=== PATIENT | male | born 1990 | race Caucasian/White ===

== ENCOUNTER 2020-12-14 12:22 | Inpatient (IN) | payer OTHER ==
[~2020-12-14] VITALS: Ht 167.6 cm; Wt 81.8 kg
[2020-12-14] MEDS ORDERED: ACETAMINOPHEN 325 MG TABLET PO PRN (13:45)
[2020-12-14] MEDS ORDERED: MAGNESIUM HYDROXIDE SUSPENSION 30 ML UDCUP PO PRN (13:45)
[2020-12-14 15:06] LABS: COVID AG,FIA SOURCE NASOPHARYNGEAL
[2020-12-14 15:21] VITALS: BP 134/80
[2020-12-14] MEDS ORDERED: INFLUENZA VIRUS VACCINE QVS 2020-21 (6MO+)/PF 60 MCG/0.5 ML SYRINGE IM ONE (16:45)
[2020-12-14 19:55] VITALS: BP 127/64
[2020-12-15 04:00] VITALS: BP 123/78
[2020-12-15 08:13] VITALS: BP 122/59
[2020-12-15 20:18] VITALS: BP 120/70
[2020-12-16 05:03] VITALS: BP 109/69
[2020-12-16 08:26] VITALS: BP 113/81
[2020-12-16 20:08] VITALS: BP 123/69
[2020-12-17 04:28] VITALS: BP 113/55
[2020-12-17 08:10] VITALS: BP 126/65
== END 2020-12-17 12:20 | DRG 885 ==
LOC: EMS 12:25 → 6S 14:26
PROVIDERS: ADMIT Internal Medicine; ATTEND Internal Medicine
DX: F29 Unspecified psychosis not due to a substance or known physiological condition (principal); R45.851 Suicidal ideations; F20.0 Paranoid schizophrenia; Z20.822 Contact with and (suspected) exposure to COVID-19; Z23 Encounter for immunization
CPT/HCPCS: 87426; 99285; Z7502

== ENCOUNTER 2021-04-12 18:27 | Inpatient (IN) | payer OTHER ==
[~2021-04-12] VITALS: Ht 175.3 cm; Wt 90.4 kg
[2021-04-12] MEDS ORDERED: HALOPERIDOL 5 MG TABLET PO ONE (19:45)
[2021-04-12] MEDS ORDERED: DiphenhydrAMINE HCL 50 MG/ML VIAL IM ONE (20:00)
[2021-04-12] MEDS ORDERED: LORazepam 2 MG/ML VIAL IM ONE (20:00)
[2021-04-12] MEDS ORDERED: HALOPERIDOL LACTATE 5 MG/ML VIAL IM ONE (20:00)
[2021-04-12 20:20] LABS: COVID AG,FIA SOURCE NASOPHARYNGEAL
[2021-04-12 20:23] LABS: BASOPHILS % (AUTO) 0.5 % (0.0-2.0); EOSINOPHILS % (AUTO) 0.5 % (1.0-6.0); HEMATOCRIT 40.3 % (41-53); HEMOGLOBIN 13.7 g/dL (13.5-17.5); LYMPHOCYTES # (AUTO) 2.5 K/uL (1.0-4.8); LYMPHOCYTES % (AUTO) 28.9 % (22.0-44.0); MEAN CORPUSCULAR VOLUME 88 fL (80-100); MONOCYTES # (AUTO) 0.4 K/uL (0.1-1.0); MONOCYTES % (AUTO) 4.5 % (2.0-9.0); NEUTROPHILS # (AUTO) 5.7 K/uL (1.8-7.7); NEUTROPHILS % (AUTO) 65.6 % (40.0-70.0); PLATELET COUNT (AUTO) 220 K/uL (150-450); RED BLOOD CELL COUNT(AUTO) 4.56 MIL/uL (4.50-5.90); RED CELL DISTRIBUTION WIDTH 13.6 % (11.5-14.5)
[2021-04-12] MEDS ORDERED: ONDANSETRON HCL 4 MG/2 ML VIAL IVP PRN (20:30)
[2021-04-12] MEDS ORDERED: ACETAMINOPHEN 325 MG TABLET PO PRN ×2 (20:30→20:45)
[2021-04-12 20:37] LABS: ANION GAP 8 mmol/L (8-16); CARBON DIOXIDE 27 mmol/L (22-29); CHLORIDE 103 mmol/L (98-107); CREATININE 0.99 mg/dL (0.60-1.30); GLOMERULAR FILTR. RATE CALC > 60 mL/min (>60); GLUCOSE,RANDOM 91 mg/dL (70-110); POTASSIUM 3.7 mmol/L (3.5-5.1); SODIUM SERUM 138 mmol/L (136-145); UREA NITROGEN, BLOOD 13 mg/dL (7-18)
[2021-04-12] MEDS: DOCUSATE SODIUM 100 MG CAPSULE PO SCH (20:39)
[2021-04-12 20:44] LABS: ALANINE AMINOTRANSFERASE 23 U/L (12-78); ALBUMIN 4.1 g/dL (3.4-5.0); ALKALINE PHOSPHATASE 80 U/L (46-116); ASPARTATE AMINOTRANSFERASE 13 U/L (15-37); BILIRUBIN,TOTAL 0.5 mg/dL (0.1-1.0); TOTAL PROTEIN, SERUM 7.9 g/dL (6.4-8.2)
[2021-04-12] MEDS ORDERED: MAGNESIUM HYDROXIDE SUSPENSION 30 ML UDCUP PO PRN (20:45)
[2021-04-12] MEDS ORDERED: IPRATROPIUM BROMIDE 0.5 MG/2.5 ML NEB SOLUTION NEB PRN (20:45)
[2021-04-12] MEDS ORDERED: ALBUTEROL SULFATE 2.5 MG/0.5 ML NEB SOLUTION NEB PRN (20:45)
[2021-04-12] MEDS ORDERED: BISACODYL 10 MG RECTAL RECTAL SUPPOSITORY PR PRN (20:45)
[2021-04-12] MEDS ORDERED: ZOLPIDEM TARTRATE 5 MG TABLET PO PRN (20:45)
[2021-04-12 21:56] VITALS: BP 115/42
[2021-04-12] MEDS ORDERED: HALOPERIDOL LACTATE 5 MG/ML VIAL IM PRN (22:00)
[2021-04-12] MEDS ORDERED: LORazepam 2 MG/ML VIAL IM PRN (22:00)
[2021-04-12] MEDS ORDERED: DiphenhydrAMINE HCL 50 MG/ML VIAL IM PRN (22:00)
[2021-04-13 05:44] VITALS: BP 116/68
[2021-04-13] MEDS: DOCUSATE SODIUM 100 MG CAPSULE PO SCH ×2 (09:00→21:29)
[2021-04-13 09:07] VITALS: BP 118/64
[2021-04-13] MEDS: RisperiDONE 2 MG TABLET PO SCH ×3 (09:15→21:29)
[2021-04-13 20:40] VITALS: BP 110/63
[2021-04-14 04:30] VITALS: BP 109/63
[2021-04-14] MEDS: DOCUSATE SODIUM 100 MG CAPSULE PO SCH ×2 (08:03→20:05)
[2021-04-14] MEDS: RisperiDONE 2 MG TABLET PO SCH ×2 (08:03→20:05)
[2021-04-14 08:13] VITALS: BP 120/71
[2021-04-14 20:05] VITALS: BP 108/70
[2021-04-15 04:30] VITALS: BP 100/63
[2021-04-15 07:42] VITALS: BP 110/66
[2021-04-15] MEDS: DOCUSATE SODIUM 100 MG CAPSULE PO SCH ×2 (07:57→20:16)
[2021-04-15] MEDS: RisperiDONE 2 MG TABLET PO SCH ×2 (07:57→20:16)
[2021-04-15 20:59] VITALS: BP 109/61
[2021-04-16 06:04] VITALS: BP 113/81
[2021-04-16 08:21] VITALS: BP 115/72
[2021-04-16] MEDS: DOCUSATE SODIUM 100 MG CAPSULE PO SCH (08:37)
[2021-04-16] MEDS: RisperiDONE 2 MG TABLET PO SCH (08:37)
== END 2021-04-16 12:50 | DRG 885 ==
LOC: EMS 18:29 → 6S 20:32
PROVIDERS: ADMIT Hospitalist; ATTEND Hospitalist
DX: F20.0 Paranoid schizophrenia (principal); F41.9 Anxiety disorder, unspecified; Z79.899 Other long term (current) drug therapy; Z20.822 Contact with and (suspected) exposure to COVID-19
CPT/HCPCS: 80053; 85025; 99291; G0480; J1200; J1630; J2060

== ENCOUNTER 2021-05-13 20:44 | Inpatient (IN) | payer OTHER ==
[~2021-05-13] VITALS: Ht 167.6 cm; Wt 85.9 kg
[2021-05-13 21:43] LABS: BASOPHILS % (AUTO) 0.7 % (0.0-2.0); EOSINOPHILS % (AUTO) 0.6 % (1.0-6.0); HEMATOCRIT 44.3 % (41-53); HEMOGLOBIN 15.1 g/dL (13.5-17.5); LYMPHOCYTES # (AUTO) 2.9 K/uL (1.0-4.8); LYMPHOCYTES % (AUTO) 29.6 % (22.0-44.0); MEAN CORPUSCULAR HEMOGLOBIN 30.3 pg (26.0-34.0); MEAN CORPUSCULAR VOLUME 89 fL (80-100); MONOCYTES # (AUTO) 0.4 K/uL (0.1-1.0); MONOCYTES % (AUTO) 4.4 % (2.0-9.0); NEUTROPHILS # (AUTO) 6.4 K/uL (1.8-7.7); NEUTROPHILS % (AUTO) 64.7 % (40.0-70.0); PLATELET COUNT (AUTO) 275 K/uL (150-450); RED BLOOD CELL COUNT(AUTO) 4.99 MIL/uL (4.50-5.90); RED CELL DISTRIBUTION WIDTH 13.2 % (11.5-14.5)
[2021-05-13 21:52] LABS: ANION GAP 12 mmol/L (8-16); CALCIUM, TOTAL 9.5 mg/dL (8.8-10.5); CARBON DIOXIDE 26 mmol/L (22-29); CHLORIDE 103 mmol/L (98-107); CREATININE 1.14 mg/dL (0.60-1.30); GLOMERULAR FILTR. RATE CALC > 60 mL/min (>60); GLUCOSE,RANDOM 108 mg/dL (70-110); POTASSIUM 4.1 mmol/L (3.5-5.1); SODIUM SERUM 141 mmol/L (136-145); UREA NITROGEN, BLOOD 18 mg/dL (7-18)
[2021-05-13 22:03] LABS: ALANINE AMINOTRANSFERASE 23 U/L (12-78); ALBUMIN 4.6 g/dL (3.4-5.0); ALKALINE PHOSPHATASE 90 U/L (46-116); ASPARTATE AMINOTRANSFERASE 15 U/L (15-37); BILIRUBIN,TOTAL 0.5 mg/dL (0.1-1.0); HCG,QUANTITATIVE < 1 mIU/mL (0-6)
[2021-05-13 22:33] LABS: COVID AG,FIA SOURCE NASOPHARYNGEAL
[2021-05-14 00:05] VITALS: BP 115/69
[2021-05-14 04:29] VITALS: BP 140/71
[2021-05-14 07:48] VITALS: BP 109/75
[2021-05-14] MEDS: RisperiDONE 2 MG TABLET PO SCH ×2 (10:15→21:08)
[2021-05-14 20:30] VITALS: BP 115/66
[2021-05-14] MEDS: TraZODone HCL 50 MG TABLET PO SCH (21:08)
[2021-05-15] MEDS: RisperiDONE 2 MG TABLET PO SCH ×2 (08:07→21:26)
[2021-05-15 08:39] VITALS: BP 109/58
[2021-05-15 16:34] VITALS: BP 118/60
[2021-05-15 20:33] VITALS: BP 112/66
[2021-05-15] MEDS: TraZODone HCL 50 MG TABLET PO SCH (21:26)
[2021-05-16 05:23] VITALS: BP 123/60
[2021-05-16] MEDS: RisperiDONE 2 MG TABLET PO SCH (07:58)
[2021-05-16 08:11] VITALS: BP 105/65
[2021-05-16] MEDS ORDERED: ACET-2247 PO (10:36)
[2021-05-16] MEDS ORDERED: ALBU8HFA IH (10:36)
[2021-05-16] MEDS ORDERED: MAAL30 PO (10:37)
[2021-05-16] MEDS ORDERED: LOPE-202 PO (10:37)
[2021-05-16 11:26] VITALS: BP 110/68
[2021-05-16 15:34] VITALS: BP 109/70
[2021-05-16 19:55] VITALS: BP 119/66
[2021-05-16] MEDS: RisperiDONE 3 MG TABLET PO SCH (20:02)
[2021-05-16] MEDS: TraZODone HCL 50 MG TABLET PO SCH (20:02)
[2021-05-17 04:22] VITALS: BP 109/67
[2021-05-17 08:03] VITALS: BP 105/60
[2021-05-17] MEDS: RisperiDONE 3 MG TABLET PO SCH ×2 (08:06→20:36)
[2021-05-17 15:54] VITALS: BP 105/56
[2021-05-17 19:41] VITALS: BP 109/61
[2021-05-17] MEDS: DOCUSATE SODIUM 100 MG CAPSULE PO SCH (20:36)
[2021-05-17] MEDS: TraZODone HCL 50 MG TABLET PO SCH (20:36)
[2021-05-18 04:55] VITALS: BP 117/63
[2021-05-18 07:40] VITALS: BP 121/60
[2021-05-18] MEDS: DOCUSATE SODIUM 100 MG CAPSULE PO SCH ×2 (08:01→20:25)
[2021-05-18] MEDS: RisperiDONE 3 MG TABLET PO SCH ×2 (08:01→20:25)
[2021-05-18 20:08] VITALS: BP 116/63
[2021-05-18] MEDS: TraZODone HCL 50 MG TABLET PO SCH (20:25)
[2021-05-19 05:02] VITALS: BP 112/73
[2021-05-19 08:15] VITALS: BP 101/55
[2021-05-19] MEDS: DOCUSATE SODIUM 100 MG CAPSULE PO SCH ×2 (08:18→20:25)
[2021-05-19] MEDS: RisperiDONE 3 MG TABLET PO SCH ×2 (08:18→20:25)
[2021-05-19 20:22] VITALS: BP 119/67
[2021-05-19] MEDS: TraZODone HCL 50 MG TABLET PO SCH (20:25)
[2021-05-20 04:30] VITALS: BP 105/66
[2021-05-20] MEDS: RisperiDONE 3 MG TABLET PO SCH (07:53)
[2021-05-20] MEDS: DOCUSATE SODIUM 100 MG CAPSULE PO SCH (07:53)
[2021-05-20 07:57] VITALS: BP 107/67
[2021-05-20] MEDS ORDERED: RISP3TAB35 PO (14:34)
[2021-05-20] MEDS ORDERED: TRAZ-252 PO (14:35)
[2021-05-20 15:30] VITALS: BP 110/60
[2021-05-20 19:30] VITALS: BP 107/59
== END 2021-05-20 20:30 | DRG 880 ==
LOC: EMS 20:48 → 6S 23:15
PROVIDERS: ADMIT Hospitalist; ATTEND Hospitalist
DX: R44.0 Auditory hallucinations (principal); F20.0 Paranoid schizophrenia; Z79.899 Other long term (current) drug therapy; Z20.822 Contact with and (suspected) exposure to COVID-19
CPT/HCPCS: 80053; 84702; 85025; 99285; G0480

== ENCOUNTER 2021-06-13 03:09 | Inpatient (IN) | payer OTHER ==
[~2021-06-13] VITALS: Ht 157.5 cm; Wt 86.1 kg
[~2021-06-13 03:09] MED LIST: RISP3TAB35 PO; TRAZ-252 PO
[2021-06-13] MEDS ORDERED: RISP3TAB44 PO (03:35)
[2021-06-13 04:18] LABS: COVID AG,FIA SOURCE NASOPHARYNGEAL
[2021-06-13 04:19] LABS: BASOPHILS % (AUTO) 0.3 % (0.0-2.0); EOSINOPHILS % (AUTO) 0.4 % (1.0-6.0); HEMATOCRIT 40.9 % (41-53); HEMOGLOBIN 13.9 g/dL (13.5-17.5); LYMPHOCYTES # (AUTO) 2.2 K/uL (1.0-4.8); MEAN CORPUSCULAR HEMOGLOBIN 30.2 pg (26.0-34.0); MEAN CORPUSCULAR VOLUME 89 fL (80-100); MONOCYTES # (AUTO) 0.6 K/uL (0.1-1.0); MONOCYTES % (AUTO) 4.3 % (2.0-9.0); NEUTROPHILS # (AUTO) 10.7 K/uL (1.8-7.7); PLATELET COUNT (AUTO) 197 K/uL (150-450); RED BLOOD CELL COUNT(AUTO) 4.61 MIL/uL (4.50-5.90)
[2021-06-13 04:44] LABS: ANION GAP 5 mmol/L (8-16); CARBON DIOXIDE 29 mmol/L (22-29); CHLORIDE 105 mmol/L (98-107); GLOMERULAR FILTR. RATE CALC > 60 mL/min (>60); GLUCOSE,RANDOM 106 mg/dL (70-110); POTASSIUM 4.3 mmol/L (3.5-5.1); SODIUM SERUM 139 mmol/L (136-145); UREA NITROGEN, BLOOD 13 mg/dL (7-18)
[2021-06-13 04:51] LABS: ALANINE AMINOTRANSFERASE 28 U/L (12-78); ALBUMIN 4.1 g/dL (3.4-5.0); ASPARTATE AMINOTRANSFERASE 17 U/L (15-37); BILIRUBIN,TOTAL 0.7 mg/dL (0.1-1.0); TOTAL PROTEIN, SERUM 7.9 g/dL (6.4-8.2)
[2021-06-13 05:08] LABS: ALKALINE PHOSPHATASE 79 U/L (46-116)
[2021-06-13] MEDS ORDERED: HALOPERIDOL 5 MG TABLET PO ONE (05:15)
[2021-06-13] MEDS ORDERED: DiphenhydrAMINE HCL 25 MG CAPSULE PO ONE (05:15)
[2021-06-13] MEDS ORDERED: ONDANSETRON HCL 4 MG/2 ML VIAL IVP PRN (05:45)
[2021-06-13] MEDS ORDERED: ACETAMINOPHEN 325 MG TABLET PO PRN ×2 (05:45→08:30)
[2021-06-13] MEDS: FAMOTIDINE 20 MG TABLET PO SCH (10:34)
[2021-06-13 13:41] VITALS: BP 100/54
[2021-06-13 18:51] LABS: APPEARANCE,URINE CLEAR (CLEAR); BILIRUBIN,URINE NEGATIVE (NEGATIVE); GLUCOSE, URINE (UA) NEGATIVE (NEGATIVE); KETONES,URINE TRACE mg/dL (NEGATIVE); LEUKOCYTE ESTERASE ,URINE NEGATIVE (NEGATIVE); NITRATE,URINE NEGATIVE (NEGATIVE); OCCULT BLOOD,URINE NEGATIVE (NEGATIVE); PH,URINE 5.5 (5.0-8.0); PROTEIN,URINE NEGATIVE (NEGATIVE); UROBILINOGEN,URINE 0.2 mg/dL (<=1.0)
[2021-06-13 18:56] LABS: AMPHET/METH SCREEN,URINE NEGATIVE (NEGATIVE); BARBITURATE SCREEN, URINE NEGATIVE (NEGATIVE); BENZODIAZEPINES SCREEN,URINE NEGATIVE (NEGATIVE); CANNABINOID SCREEN,URINE NEGATIVE (NEGATIVE); COCAINE SCREEN,URINE NEGATIVE (NEGATIVE); METHADONE SCREEN, URINE NEGATIVE (NEGATIVE); OPIATE SCREEN,URINE NEGATIVE (NEGATIVE)
[2021-06-13 18:57] LABS: PHENCYCLIDINE SCREEN,URINE NEGATIVE (NEGATIVE)
[2021-06-13] MEDS: MAGNESIUM HYDROXIDE SUSPENSION 30 ML UDCUP PO PRN (20:12)
[2021-06-13 20:13] VITALS: BP 119/70
[2021-06-13 20:14] LABS: RBC,URINE None Seen /HPF (0-2)
[2021-06-13 20:15] LABS: BACTERIA,URINE None Seen /HPF (None Seen); WBC,URINE None Seen /HPF (0-5)
[2021-06-14 05:05] VITALS: BP 107/56
[2021-06-14 07:28] VITALS: BP 103/59
[2021-06-14] MEDS: FAMOTIDINE 20 MG TABLET PO SCH (08:25)
[2021-06-14 11:23] LABS: EOSINOPHILS % (AUTO) 1.9 % (1.0-6.0); HEMATOCRIT 41.7 % (41-53); HEMOGLOBIN 14.1 g/dL (13.5-17.5); LYMPHOCYTES # (AUTO) 3.1 K/uL (1.0-4.8); LYMPHOCYTES % (AUTO) 49.8 % (22.0-44.0); MEAN CORPUSCULAR HEMOGLOBIN 30.2 pg (26.0-34.0); MEAN CORPUSCULAR HGB CONC 33.8 G/dL (31.0-37.0); MEAN CORPUSCULAR VOLUME 90 fL (80-100); MONOCYTES # (AUTO) 0.4 K/uL (0.1-1.0); MONOCYTES % (AUTO) 5.9 % (2.0-9.0); NEUTROPHILS # (AUTO) 2.6 K/uL (1.8-7.7); NEUTROPHILS % (AUTO) 41.4 % (40.0-70.0); PLATELET COUNT (AUTO) 182 K/uL (150-450); RED BLOOD CELL COUNT(AUTO) 4.66 MIL/uL (4.50-5.90); RED CELL DISTRIBUTION WIDTH 12.9 % (11.5-14.5)
[2021-06-14 15:09] VITALS: BP 112/62
[2021-06-14] MEDS: RisperiDONE 3 MG TABLET PO SCH ×2 (16:10→20:11)
[2021-06-14 20:00] VITALS: BP 111/68
[2021-06-14] MEDS: TraZODone HCL 50 MG TABLET PO SCH (20:11)
[2021-06-15 05:45] VITALS: BP 103/69
[2021-06-15 07:57] VITALS: BP 112/68
[2021-06-15] MEDS: RisperiDONE 3 MG TABLET PO SCH ×2 (09:28→20:53)
[2021-06-15] MEDS: FAMOTIDINE 20 MG TABLET PO SCH (09:28)
[2021-06-15 15:26] VITALS: BP 105/63
[2021-06-15 19:50] VITALS: BP 116/71
[2021-06-15] MEDS: TraZODone HCL 50 MG TABLET PO SCH (20:53)
[2021-06-16 05:41] VITALS: BP 113/59
[2021-06-16 07:31] VITALS: BP 115/59
[2021-06-16] MEDS: RisperiDONE 3 MG TABLET PO SCH ×2 (09:09→21:14)
[2021-06-16] MEDS: FAMOTIDINE 20 MG TABLET PO SCH (09:10)
[2021-06-16 15:50] VITALS: BP 124/58
[2021-06-16 19:30] VITALS: BP 121/72
[2021-06-16] MEDS: ZIPRASIDONE HCL 60 MG CAPSULE PO SCH (21:14)
[2021-06-17 04:45] VITALS: BP 118/70
[2021-06-17 07:35] VITALS: BP 113/55
[2021-06-17] MEDS: RisperiDONE 3 MG TABLET PO SCH ×2 (09:49→20:36)
[2021-06-17] MEDS: FAMOTIDINE 20 MG TABLET PO SCH (09:49)
[2021-06-17 19:30] VITALS: BP 117/73
[2021-06-17] MEDS: ZIPRASIDONE HCL 60 MG CAPSULE PO SCH (20:36)
[2021-06-18 04:00] VITALS: BP 122/72
[2021-06-18 08:54] VITALS: BP 106/62
[2021-06-18] MEDS: RisperiDONE 3 MG TABLET PO SCH ×2 (08:57→20:49)
[2021-06-18] MEDS: FAMOTIDINE 20 MG TABLET PO SCH (08:57)
[2021-06-18] MEDS: MAGNESIUM HYDROXIDE SUSPENSION 30 ML UDCUP PO PRN (18:05)
[2021-06-18 19:59] VITALS: BP 113/68
[2021-06-18] MEDS: ZIPRASIDONE HCL 80 MG CAPSULE PO SCH (20:49)
[2021-06-19 05:30] VITALS: BP 101/67
[2021-06-19 08:27] VITALS: BP 109/56
[2021-06-19] MEDS: FAMOTIDINE 20 MG TABLET PO SCH (09:37)
[2021-06-19] MEDS: RisperiDONE 3 MG TABLET PO SCH ×2 (09:38→20:30)
[2021-06-19] MEDS: ZIPRASIDONE HCL 80 MG CAPSULE PO SCH (20:29)
[2021-06-19 21:12] VITALS: BP 119/70
[2021-06-20 05:01] VITALS: BP 104/59
[2021-06-20 08:00] VITALS: BP 106/63
[2021-06-20] MEDS: RisperiDONE 3 MG TABLET PO SCH (09:04)
[2021-06-20] MEDS: FAMOTIDINE 20 MG TABLET PO SCH (09:04)
[2021-06-20] MEDS ORDERED: RISP3TAB35 PO (09:41)
[2021-06-20] MEDS ORDERED: FAMO20 PO (09:41)
[2021-06-20] MEDS ORDERED: ZIPR80CA2 PO (09:42)
[2021-06-20] MEDS ORDERED: ACET-2247 PO (09:43)
[2021-06-20] MEDS ORDERED: MOM30 PO (09:44)
== END 2021-06-20 13:41 | DRG 885 ==
LOC: EMS 03:09 → 6S 11:16
PROVIDERS: ADMIT Internal Medicine; ATTEND Internal Medicine
DX: F20.0 Paranoid schizophrenia (principal); Z20.822 Contact with and (suspected) exposure to COVID-19; D72.829 Elevated white blood cell count, unspecified; Z79.899 Other long term (current) drug therapy
CPT/HCPCS: 71045; 80053; 80307; 81001; 85025; 93005; 99285; G0480; 36415-L1; 36415-TC